=== PATIENT | female | born 1960 | race Caucasian/White ===

== ENCOUNTER 2016-10-29 09:56 | Emergency (ER) | payer MEDICAID ==
[~2016-10-29] VITALS: Ht 147.3 cm; Wt 86.2 kg
[2016-10-29 10:00] VITALS: BP 143/54; PULSE 61; RESP 18; TEMP 97.6; O2SAT 99
--- NOTE | 2016-10-29 10:00 | NUR ---
Pt placed to ER bed 04. Report received from MYLES Donaldson. Pt s/p trip and fall 2 days ago. Pt states her right foot went forward and she fell on her back. Denies hitting head or LOC. Pain radiates from lower spine to left shoulder. Pt also s/p prolapsed bladder repair x 1.5 years ago. Pt localizing pain generalized to lower abd. Urinary frequency reported. Denies hematuria or vaginal discharger. Pt's son at bedside.
--- NOTE | 2016-10-29 10:05 | NUR ---
Dr. Cuadra at bedside to assess pt.
--- NOTE | 2016-10-29 10:35 | NUR ---
Lab at bedside to collect blood specimen.
[2016-10-29] MEDS ORDERED: KETOROLAC TROMETHAMINE 30 MG VIAL IM ONE (10:45)
[2016-10-29 10:47] LABS: BILIRUBIN,URINE NEGATIVE (NEGATIVE); BLOOD, URINE NEGATIVE (NEGATIVE); CLARITY/URINE CLEAR (CLEAR); COLOR,URINE YELLOW (YELLOW); GLUCOSE,URINE NEGATIVE (NEGATIVE); KETONES,URINE NEGATIVE (NEGATIVE); LEUKOCYTE ESTERASE ,URINE NEGATIVE (NEGATIVE); NITRITE, URINE NEGATIVE (NEGATIVE); PROTEIN URINE NEGATIVE (NEGATIVE); UROBILINOGEN,URINE 0.2 (0.2-1.0)
--- NOTE | 2016-10-29 10:57 | NUR ---
Pt to CT via stretcher.
[2016-10-29 11:02] LABS: BASOPHILS % (AUTO) 0.4 % (0.0-2.0); EOSINOPHILS # (AUTO) 0.1 K/uL (0.0-0.4); EOSINOPHILS % (AUTO) 1.6 % (0.0-4.0); HEMATOCRIT 37.8 % (36-48); LYMPHOCYTES # (AUTO) 2.3 K/uL (1.0-5.5); LYMPHOCYTES % (AUTO) 39.5 % (20.5-51.5); MEAN CORPUSCULAR HEMOGLOBIN 30 pg (27-31); MEAN CORPUSCULAR HGB CONC 34 % (32-36); MEAN CORPUSCULAR VOLUME 88 fL (79.0-98.0); MONOCYTES # (AUTO) 0.4 K/uL (0.0-1.0); MONOCYTES % (AUTO) 7.2 % (1.7-9.3); NEUTROPHILS % (AUTO) 51.3 % (40.0-70.0); PLATELET COUNT (AUTO) 213 K/uL (130-430); RED BLOOD CELL COUNT(AUTO) 4.31 MIL/uL (4.2-6.2); RED CELL DISTRIBUTION WIDTH 12.6 % (9.0-15.0); WHITE BLOOD COUNT (AUTO) 5.8 K/uL (4.8-10.8)
--- NOTE | 2016-10-29 11:10 | NUR ---
Pt returns from radiology.
[2016-10-29 11:11] LABS: ANION GAP 6 (5-15); CHLORIDE 105 mmol/L (98-107); CREATININE 0.62 mg/dL (0.55-1.30); GLUCOSE 104 mg/dL (70-99); SODIUM SERUM 140 mmol/L (136-145); UREA NITROGEN, BLOOD 11 mg/dL (8-21)
[2016-10-29 11:19] LABS: ALANINE AMINOTRANSFERASE 35 U/L (12-78); ALBUMIN 3.6 g/dL (3.4-4.8); ASPARTATE AMINOTRANSFERASE 22 U/L (10-37); LIPASE 138 U/L (73-393); TOTAL BILIRUBIN 0.5 mg/dL (0.0-1.0); TOTAL PROTEIN, SERUM 7.5 g/dL (6.4-8.3)
[2016-10-29 11:20] LABS: GFR AFRICAN AMERICAN 127 mL/min (>90)
[2016-10-29] MEDS ORDERED: MORPHINE SULFATE 10 MG/ML VIAL IVP ONE (11:45)
[2016-10-29] MEDS ORDERED: MORPHINE 2 MG/ML INJ. SYRINGE IVP ONE (12:00)
[2016-10-29] MEDS ORDERED: DEXAMETHASONE SOD PHOSPHATE 10 MG/ML VIAL IM ONE (12:00)
[2016-10-29 12:15] VITALS: BP 136/62; PULSE 64; RESP 20; TEMP 97.4; O2SAT 100
--- NOTE | 2016-10-29 12:15 | NUR ---
Patient given written and verbal discharge instructions and verbalizes understanding. ER MD discussed with patient the results and treatment provided. Patient in stable condition. ID arm band removed. Rx of Medrol Dose Pack given. Patient educated on pain management and to follow up with PMD. Pain Scale 3/10 after medication.. Opportunity for questions provided and answered.
== END 2016-10-29 12:15 | disposition home or self-care (01) ==
LOC: SED 09:56
DX: M51.26 Other intervertebral disc displacement, lumbar region (principal); K42.9 Umbilical hernia without obstruction or gangrene
CPT/HCPCS: 36415; 72131; 74176; 80053; 81003; 83690; 84484; 85025; 96372; 99285; J1100; J1885; J2270